=== PATIENT | male | born 1975 | race Caucasian/White ===

== ENCOUNTER → 2016-10-04 | Outpatient (CLI) | payer OTHER ==
[2016-10-04 08:24] LABS: CH 31.4; CHCM 32.8; HCT 47.3 % (39.0-53.0); HDW 2.51; HGB 15.5 gm/dL (13.0-17.5); MCH 31.6 pg (25.0-35.0); MCHC 32.9 g/dL (31.0-37.0); MCV 96.3 fL (80.0-100.0); Mean Platelet Volume 7.8; RBC 4.91 m/uL (4.30-5.90); RDW 13.4 % (11.5-15.5); WBC 7.2 k/uL (3.8-10.6)
[2016-10-04 08:41] LABS: ALT 24 U/L (21-72); AST 21 U/L (17-59); Alkaline Phosphatase 56 U/L (38-126); Anion Gap 10 mmol/L; Blood Urea Nitrogen 12 mg/dL (9-20); Carbon Dioxide 27 mmol/L (22-30); Chloride 106 mmol/L (98-107); Cholesterol 235 mg/dL (<200); Glucose 102 mg/dL (74-99); HDL Cholesterol 38 mg/dL (40-60); Non-African American GFR(MDRD) >60 (>60 ml/min/1.73 sqM); Potassium 5.2 mmol/L (3.5-5.1); Sodium 143 mmol/L (137-145); Total Protein 7.9 g/dL (6.3-8.2); Triglycerides 134 mg/dL (<150)
== END | disposition home or self-care (01) ==
LOC: LABWHC1 07:59
PROVIDERS: ATTEND Internal Medicine
DX: Z00.00 Encounter for general adult medical examination without abnormal findings (principal)
CPT/HCPCS: 36415; 80053; 80061; 84439; 84443; 85027

== ENCOUNTER → 2016-10-08 | Outpatient (CLI) | payer OTHER ==
--- NOTE | 2016-10-08 16:45 | US ---
EXAMINATION TYPE: US scrotum with doppler. Grayscale and color Doppler Duplex imaging performed of sammie negrete scrotum. DATE OF EXAM: 10/08/2016 4:32 PM COMPARISON: NONE CLINICAL HISTORY: N50.812 Left testicular pain. Rectal bleeding, minor left testicle pain EXAM MEASUREMENTS: TESTICLES: Right Testicle: 2.9 x 2.6 x 3.3 cm Left Testicle: 3.7 x 2.5 x 3.0 cm EPIDIDYMIS HEAD: Right Epididymis: 1.3 cm Left Epididymis: 1.1 cm Doppler performed to assess for testicular vascularity; good bilateral color flow and waveforms are s een. Presence of hydroceles: yes, complex fluid collection medial/inferior to left testicle = 2.5 x 2.0 x 3.2cm Presence of varicoceles: no No suspicious focal intratesticular mass is seen bilaterally. Satisfactory blood flow to and venous r eturn from both testicles is identified. There is moderate size nonsimple left scrotal fluid collecti on. Comparison view shows symmetric blood flow to both testicles. IMPRESSION: Moderate nonsimple scrotal fluid collection. No asymmetric diminished or increased blood flow to left testicle is noted.
== END | disposition home or self-care (01) ==
LOC: RADUSMAIN 16:02
PROVIDERS: ATTEND Internal Medicine
DX: N50.89 Other specified disorders of the male genital organs (principal); N50.812 Left testicular pain
CPT/HCPCS: 76870; 93975

== ENCOUNTER → 2017-08-03 | Outpatient (CLI) | payer OTHER ==
--- NOTE | 2017-08-03 17:23 | XR ---
EXAMINATION TYPE: XR Hip Complete RT DATE OF EXAM: 08/03/2017 CLINICAL HISTORY: Right hip pain TECHNIQUE: AP and frogleg views of the right hip are obtained. COMPARISON: None. FINDINGS: There is no acute fracture/dislocation evident in the right hip. The joint space in the r ight hip appears mildly narrowed with acetabular roof sclerosis. The overlying soft tissue appears u nremarkable. IMPRESSION: There is no acute fracture or dislocation in the right hip. Mild right femoral acetabula r arthropathy.
== END | disposition home or self-care (01) ==
LOC: RADXRMAIN 16:59
PROVIDERS: ATTEND Emergency Medicine
DX: M12.9 Arthropathy, unspecified (principal)
CPT/HCPCS: 73502

== ENCOUNTER → 2017-08-11 | Outpatient (CLI) | payer OTHER ==
--- NOTE | 2017-08-11 23:16 | MR ---
EXAMINATION TYPE: MR hip RT wo con DATE OF EXAM: 08/11/2017 COMPARISON: Right hip x-ray August 03, 2017 HISTORY: Sprain of right hip, initial encounter. Pain for 8 days after slip and fall injury on ice pe r patient. Standard multiplanar, multisequence MRI departmental protocol Multiplanar, multisequence images of the pelvis focus on the right hip were acquired. FINDINGS: Bone marrow signal intensity in the pelvis including both hips is maintained. No suspicious T2 signal or edema is seen. No suspicious low T1 signal to suggest avascular necrosis is identified. Femoral head shapes are maintained bilaterally. No suspicious joint effusions are seen. There is no suspicious fluid signal at level of greater or lesser trochanters bilaterally. Muscle bu lk in the bilateral thighs is symmetric and felt within normal limits. No suspicious groin adenopathy is identified. No suspicious groin fat or bowel containing inguinal hernias are seen. The labrum appears grossly intact given limitation of nonarthrogram study. No suspicious bowel dilatation is seen. Low-lying cecum into anterior right pelvis is present. No con cerning pelvic fluid collection is noted. Urinary bladder is unremarkable. Prostate gland is normal i n size. No suspicious pelvic adenopathy is seen. IMPRESSION: No significant finding is seen to account for patient's symptoms.
== END | disposition home or self-care (01) ==
LOC: RADMRIMAIN 06:12
PROVIDERS: ATTEND Emergency Medicine
DX: S73.101A Unspecified sprain of right hip, initial encounter (principal)

== ENCOUNTER 2018-08-29 09:26 | Emergency (ER) | payer OTHER ==
[2018-08-29 09:38] VITALS: RESP 18; TEMP 98.1
[2018-08-29] MEDS ORDERED: KETOROLAC 30 MG/ML 1 ML VIAL IVP STA (09:59)
[2018-08-29 10:16] LABS: Basophils % (A) 0 %; Eosinophils # (A) 0.2 k/uL (0-0.7); Eosinophils % (A) 3 %; HCT 48.4 % (39.0-53.0); Lymphocytes # (A) 2.3 k/uL (1.0-4.8); Lymphocytes % (A) 33 %; MCH 30.1 pg (25.0-35.0); MCHC 33.2 g/dL (31.0-37.0); MCV 90.8 fL (80.0-100.0); Mean Platelet Volume 7.3; Monocytes # (A) 0.4 k/uL (0-1.0); Monocytes % (A) 6 %; Neutrophils # (A) 3.7 k/uL (1.3-7.7); Neutrophils % (A) 54 %; Platelet Count 177 k/uL (150-450); RBC 5.33 m/uL (4.30-5.90); RDW 13.1 % (11.5-15.5); WBC 6.9 k/uL (3.8-10.6)
[2018-08-29 10:24] LABS: ALT 32 U/L (21-72); AST 24 U/L (17-59); Albumin 4.4 g/dL (3.5-5.0); Alkaline Phosphatase 61 U/L (38-126); Anion Gap 9 mmol/L; Blood Urea Nitrogen 14 mg/dL (9-20); Calcium 9.6 mg/dL (8.4-10.2); Carbon Dioxide 26 mmol/L (22-30); Chloride 107 mmol/L (98-107); Glucose 110 mg/dL (74-99); Potassium 4.7 mmol/L (3.5-5.1); Sodium 142 mmol/L (137-145); Total Bilirubin 0.9 mg/dL (0.2-1.3); Total Protein 7.5 g/dL (6.3-8.2)
--- NOTE | 2018-08-29 10:27 | XR ---
EXAMINATION TYPE: XR KUB DATE OF EXAM: 08/29/2018 CLINICAL DATA: 43-year-old male hematuria for 4 days, pain, PHH COMPARISON: None FINDINGS: Lung bases are clear. No evidence for free intraperitoneal air. No dilated small bowel or air-fluid levels. Scattered air and stool seen throughout the colon extendi ng distally into the rectum. Moderate stool burden. No definite suspicious calcifications identified. IMPRESSION: Moderate stool burden. No evidence of bowel obstruction or free intraperitoneal air.
[2018-08-29 10:29] LABS: Appearance,Urine Clear (Clear); Bilirubin,Urine Negative (Negative); Blood,Urine Negative (Negative); Color,Urine Yellow; Glucose,Urine (UA) Negative (Negative); Ketones,Urine Negative (Negative); Leukocyte Esterase,Urine Negative (Negative); Mucus,Urine Rare /hpf; Nitrite,Urine Negative (Negative); Protein,Urine 1+ (Negative); RBC,Urine <1 /hpf (0-5); Specific Gravity,Urine 1.015 (1.001-1.035); Squamous Epithelial Cell,Urine <1 /hpf (0-4); Urobilinogen,Urine <2.0 mg/dL (<2.0); WBC,Urine 1 /hpf (0-5)
--- NOTE | 2018-08-29 11:25 | CT ---
EXAMINATION TYPE: CT abdomen pelvis wo con DATE OF EXAM: 08/29/2018 COMPARISON: Radiograph same day HISTORY: 43-year-old male Right sided flank pian, gross hematuria and painful urination CT DLP: 651.7 mGycm. Automated exposure control for dose reduction was used. TECHNIQUE: Contiguous axial scanning of the abdomen and pelvis without IV contrast. Coronal and sagit marissa reconstructions performed. FINDINGS: Heart normal size without pericardial effusion. Tiny calcification central hepatic dome, possible small calcified granuloma. Noncontrast appearance of the liver, gallbladder, left adrenal gland, kidneys, spleen with anterior s plenule, and pancreas show no gross abnormality. Subtle 8 mm nodularity possible in the right adrenal gland, axial image 45. No dilated small bowel, free fluid, or free air. No mesenteric or retroperitoneal lymphadenopathy. Normal appendix. Scattered moderate stool burden. No pericolonic inflammatory change. Moderate circumferential bladder wall thickening. Prostate gland measures 4.6 cm wide. Punctate centr al prostatic calcifications. No abnormal fluid collection in the pelvis or pelvic lymphadenopathy see n. Bones: Mild degenerative spurring of the hips. No osseous destructive process. IMPRESSION: 1. No nephrolithiasis or hydronephrosis seen. 2. Moderate circumferential bladder wall thickening could represent chronic bladder wall hypertrophy . Correlate for possible cystitis. 3. Mild prostatomegaly at 4.6 cm wide. 4. Possible tiny 8 mm right adrenal adenoma. Consider one-year follow-up to reassess.
--- NOTE | 2018-08-29 11:28 | ED ---
Male Urogenital HPI - General Chief complaint: Urogenital Stated complaint: Painful to urinate Time Seen by Provider: 08/29/18 09:50 Source: patient Mode of arrival: ambulatory Limitations: no limitations - History of Present Illness Initial comments: 43-year-old male past medical history of hypertension presenting today for chief complaint of dysuria and hematuria. Patient states the past few weeks he has had on and off right flank pain he states it comes and goes in intensity. Patient states she did have a few days ago intense dysuria as well as hematuria. Patient states today this morning he began experiencing dysuria again and decided to present for evaluation. Patient has a fever, chills, night sweats. Patient denies concern for sexual transmitted disease. Patient denies chest pain, dyspnea, abdominal pain or testicular pain, patient denies any nausea vomiting headache dizziness numbness tingling back pain. Upon arrival patient appears well there is no signs of acute distress. Patient denies any current flank pain. Patient states when he used the restroom for urine sample that was yellow he denied gross hematuria at this time. Upon arrival patient's initial blood pressure elevated. - Related Data Allergies Allergy/AdvReac Type Severity Reaction Status Date / Time No Known Allergies Allergy Verified 08/29/18 09:34 Review of Systems ROS Statement: Those systems with pertinent positive or pertinent negative responses have been documented in the HPI. ROS Other: All systems not noted in ROS Statement are negative. Past Medical History Additional Past Medical History / Comment(s): chronic back pain History of Any Multi-Drug Resistant Organisms: None Reported Past Surgical History: No Surgical Hx Reported Past Psychological History: No Psychological Hx Reported Smoking Status: Current every day smoker Past Alcohol Use History: Occasional Past Drug Use History: None Reported General Exam - General Exam Comments Initial Comments: General: The patient is awake and alert, in no distress, and does not appear acutely ill. Eye: Pupils are equal, round and reactive to light, extra-ocular movements are intact. No nystagmus. There is normal conjunctiva bilaterally. No signs of icterus. Ears, nose, mouth and throat: There are moist mucous membranes and no oral lesions. Neck: The neck is supple, there is no tenderness or JVD. Cardiovascular: There is a regular rate and rhythm. No murmur, rub or gallop is appreciated. Respiratory: Lungs are clear to auscultation, respirations are non-labored, breath sounds are equal. No wheezes, stridor, rales, or rhonchi. Gastrointestinal: Soft, non-distended, non-tender abdomen without masses or organomegaly noted. There is no rebound or guarding present. No CVA tenderness. Bowel sounds are unremarkable. Musculoskeletal: Normal ROM, no tenderness. Strength 5/5. Sensation intact. Radial pulses equal bilaterally 2+. Neurological: A&O x 3. CN II-XII intact, There are no obvious motor or sensory deficits. Coordination appears grossly intact. Speech is normal. Skin: Skin is warm and dry and no rashes or lesions are noted. Psychiatric: Cooperative, appropriate mood & affect, normal judgment. Limitations: no limitations Course Vital Signs 08/29/18 08/29/18 09:35 11:42 Temperature 98.1 F 98.1 F Pulse Rate 69 72 Respiratory 18 18 Rate Blood Pressure 149/97 138/89 O2 Sat by Pulse 98 99 Oximetry Medical Decision Making - Medical Decision Making Well-appearing 43-year-old male. Patient did have history of flank pain a week or two prior. Pt complained of hematuria and dysuria. Pt KUB no calcifications. CT no acute abnormalities, and the finding of adrenal adenoma was discussed with patient, I recommended follow-up with primary care provider. This I feel patient had passed kidney stone prior to presentation. Patient left or studies within normal limits. Urinalysis revealed no abnormalities no overt signs of infection. Patient is in no discomfort. Patient has benign abdominal exam. Patient is stable for discharge with urology follow-up for hematuria. Patient is a smoker. Patient denies questions at this time agreeable plan and discharged. I'll return parameters were discussed at length the patient who verbalized understanding. Patient discharged appearing well with improvement of blood pressure. I did discuss the case with attending provider Dr. Vargas prior to patient's discharge. - Lab Data Result diagrams: 08/29/18 10:08 08/29/18 10:07 Lab Results 08/29/18 08/29/18 08/29/18 Range/Units 09:43 10:07 10:08 WBC 6.9 (3.8-10.6) k/uL RBC 5.33 (4.30-5.90) m/uL Hgb 16.0 (13.0-17.5) gm/dL Hct 48.4 (39.0-53.0) % MCV 90.8 (80.0-100.0) fL MCH 30.1 (25.0-35.0) pg MCHC 33.2 (31.0-37.0) g/dL RDW 13.1 (11.5-15.5) % Plt Count 177 (150-450) k/uL Neutrophils % 54 % Lymphocytes % 33 % Monocytes % 6 % Eosinophils % 3 % Basophils % 0 % Neutrophils # 3.7 (1.3-7.7) k/uL Lymphocytes # 2.3 (1.0-4.8) k/uL Monocytes # 0.4 (0-1.0) k/uL Eosinophils # 0.2 (0-0.7) k/uL Basophils # 0.0 (0-0.2) k/uL Sodium 142 (137-145) mmol/L Potassium 4.7 (3.5-5.1) mmol/L Chloride 107 (98-107) mmol/L Carbon Dioxide 26 (22-30) mmol/L Anion Gap 9 mmol/L BUN 14 (9-20) mg/dL Creatinine 0.87 (0.66-1.25) mg/dL Est GFR (CKD-EPI)AfAm >90 (>60 ml/min/1.73 sqM) Est GFR (CKD-EPI)NonAf >90 (>60 ml/min/1.73 sqM) Glucose 110 H (74-99) mg/dL Calcium 9.6 (8.4-10.2) mg/dL Total Bilirubin 0.9 (0.2-1.3) mg/dL AST 24 (17-59) U/L ALT 32 (21-72) U/L Alkaline Phosphatase 61 (38-126) U/L Total Protein 7.5 (6.3-8.2) g/dL Albumin 4.4 (3.5-5.0) g/dL Urine Color Yellow Urine Appearance Clear (Clear) Urine pH 6.0 (5.0-8.0) Ur Specific [place] 1.015 (1.001-1.035) Urine Protein 1+ H (Negative) Urine Glucose (UA) Negative (Negative) Urine Ketones Negative (Negative) Urine Blood Negative (Negative) Urine Nitrite Negative (Negative) Urine Bilirubin Negative (Negative) Urine Urobilinogen <2.0 (<2.0) mg/dL Ur Leukocyte Esterase Negative (Negative) Urine RBC <1 (0-5) /hpf Urine WBC 1 (0-5) /hpf Ur Squamous Epith Cells <1 (0-4) /hpf Urine Mucus Rare H (None) /hpf Disposition Clinical Impression: Dysuria, Hematuria Disposition: HOME SELF-CARE Condition: Good Instructions (If sedation given, give patient instructions): Hematuria (ED) Additional Instructions: Please use medication as discussed. Please follow-up with family doctor in the next 2 days, including scheduling follow-up for adrenal adenoma. Please follow- up with urology in next week. Please return to emergency room if the symptoms increase or worsen or for any other concerns. Is patient prescribed a controlled substance at d/c from ED?: No Referrals: Adriana Rodriguez MD [Primary Care Provider] - 1-2 days David Panchal MD [STAFF PHYSICIAN] - 1-2 days Time of Disposition: 11:27
[2018-08-29 11:43] VITALS: BP 138/89; PULSE 72
== END 2018-08-29 11:43 | disposition home or self-care (01) ==
LOC: EC 09:26
DX: R30.0 Dysuria (principal); R31.9 Hematuria, unspecified; R50.9 Fever, unspecified; R61 Generalized hyperhidrosis; I10 Essential (primary) hypertension; F17.200 Nicotine dependence, unspecified, uncomplicated
CPT/HCPCS: 36415; 80053; 85025; 81001; 74018; 74176; 99284; 96374; J1885

== ENCOUNTER 2018-12-11 14:38 | Emergency (ER) | payer OTHER ==
[2018-12-11 14:47] VITALS: RESP 18
[2018-12-11] MEDS ORDERED: PANTOPRAZOLE 40 MG/10 ML VIAL IVP STA (15:21)
[2018-12-11] MEDS ORDERED: ONDANSETRON 4 MG/2 ML VIAL IVP STA (15:21)
[2018-12-11] MEDS ORDERED: SODIUM CHLORIDE 0.9% 500 ML 500 ML IV STA (15:21)
[2018-12-11] MEDS ORDERED: AMOXICILLIN 500MG STARTER PACK 3 CAP BTL PO STA (15:22)
--- NOTE | 2018-12-11 15:33 | ED ---
General Adult HPI - General Chief complaint: Recheck/Abnormal Lab/Rx Stated complaint: Side pain Time Seen by Provider: 12/11/18 15:00 Source: patient, RN notes reviewed, old records reviewed Mode of arrival: ambulatory Limitations: no limitations - History of Present Illness Initial comments: Patient is a 43-year-old male presents emergency department today with complaints of left upper dental pain and swelling. He states is been having the symptoms for the past 3 days. He also presents complaining of some intermittent left-sided abdominal and flank pain worse after eating. He reports having the symptoms for the past month. states that he has had no associate chest pain or shortness of breath. He reports normal urination or bowel habits. - Related Data Home Medications Medication Instructions Recorded Confirmed Acetaminophen [Tylenol Extra 1,000 mg PO TID PRN 12/11/18 12/11/18 Strength] Previous Rx's Medication Instructions Recorded Amoxicillin 500 mg PO Q8H #21 capsule 12/11/18 Famotidine [Pepcid] 20 mg PO BID #20 tablet 12/11/18 Sucralfate [Carafate] 1 gm PO ACHS #20 tablet 12/11/18 Allergies Allergy/AdvReac Type Severity Reaction Status Date / Time No Known Allergies Allergy Verified 12/11/18 15:17 Review of Systems ROS Statement: Those systems with pertinent positive or pertinent negative responses have been documented in the HPI. ROS Other: All systems not noted in ROS Statement are negative. Past Medical History Additional Past Medical History / Comment(s): chronic back pain History of Any Multi-Drug Resistant Organisms: None Reported Past Surgical History: No Surgical Hx Reported Past Psychological History: No Psychological Hx Reported Smoking Status: Current every day smoker Past Alcohol Use History: Occasional Past Drug Use History: None Reported General Exam - General Exam Comments Initial Comments: This is a 43-year-old male. Alert and oriented 3. No distress. Limitations: no limitations General appearance: alert, in no apparent distress Head exam: Present: atraumatic, normocephalic, normal inspection Eye exam: Present: normal appearance, PERRL, EOMI. Absent: scleral icterus, conjunctival injection, periorbital swelling ENT exam: Present: normal exam, mucous membranes moist Neck exam: Present: normal inspection. Absent: tenderness, meningismus, lymphadenopathy Respiratory exam: Present: normal lung sounds bilaterally. Absent: respiratory distress, wheezes, rales, rhonchi, stridor Cardiovascular Exam: Present: regular rate GI/Abdominal exam: Present: soft, normal bowel sounds. Absent: distended, tenderness, guarding, rebound, rigid Extremities exam: Present: normal inspection, full ROM, normal capillary refill. Absent: tenderness, pedal edema, joint swelling, calf tenderness Back exam: Present: normal inspection Neurological exam: Present: alert, oriented X3, CN II-XII intact Course Vital Signs 12/11/18 12/11/18 14:45 15:57 Temperature 98.1 F Pulse Rate 76 67 Respiratory 18 18 Rate Blood Pressure 159/95 162/95 O2 Sat by Pulse 99 96 Oximetry Medical Decision Making - Lab Data Result diagrams: 12/11/18 15:48 12/11/18 15:48 Lab Results 12/11/18 12/11/18 12/11/18 Range/Units 15:48 15:48 16:23 WBC 13.3 H (3.8-10.6) k/uL RBC 5.60 (4.30-5.90) m/uL Hgb 16.9 (13.0-17.5) gm/dL Hct 50.3 (39.0-53.0) % MCV 89.8 (80.0-100.0) fL MCH 30.1 (25.0-35.0) pg MCHC 33.5 (31.0-37.0) g/dL RDW 13.0 (11.5-15.5) % Plt Count 215 (150-450) k/uL Neutrophils % 62 % Lymphocytes % 27 % Monocytes % 5 % Eosinophils % 3 % Basophils % 0 % Neutrophils # 8.3 H (1.3-7.7) k/uL Lymphocytes # 3.6 (1.0-4.8) k/uL Monocytes # 0.7 (0-1.0) k/uL Eosinophils # 0.3 (0-0.7) k/uL Basophils # 0.1 (0-0.2) k/uL Sodium 140 (137-145) mmol/L Potassium 4.4 (3.5-5.1) mmol/L Chloride 106 (98-107) mmol/L Carbon Dioxide 24 (22-30) mmol/L Anion Gap 10 mmol/L BUN 14 (9-20) mg/dL Creatinine 0.87 (0.66-1.25) mg/dL Est GFR (CKD-EPI)AfAm >90 (>60 ml/min/1.73 sqM) Est GFR (CKD-EPI)NonAf >90 (>60 ml/min/1.73 sqM) Glucose 88 (74-99) mg/dL Calcium 9.8 (8.4-10.2) mg/dL Total Bilirubin 0.5 (0.2-1.3) mg/dL AST 26 (17-59) U/L ALT 25 (21-72) U/L Alkaline Phosphatase 67 (38-126) U/L Total Protein 8.1 (6.3-8.2) g/dL Albumin 4.9 (3.5-5.0) g/dL Amylase 84 (30-110) U/L Lipase 56 (23-300) U/L Urine Color Yellow Urine Appearance Clear (Clear) Urine pH 5.5 (5.0-8.0) Ur Specific [place] 1.012 (1.001-1.035) Urine Protein 1+ H (Negative) Urine Glucose (UA) Negative (Negative) Urine Ketones Negative (Negative) Urine Blood Negative (Negative) Urine Nitrite Negative (Negative) Urine Bilirubin Negative (Negative) Urine Urobilinogen <2.0 (<2.0) mg/dL Ur Leukocyte Esterase Negative (Negative) Urine WBC 2 (0-5) /hpf Urine Bacteria Rare H (None) /hpf Urine Mucus Rare H (None) /hpf Disposition Clinical Impression: Gastritis, Dental abscess Disposition: HOME SELF-CARE Condition: Good Instructions (If sedation given, give patient instructions): Gastritis (ED), Toothache (ED) Additional Instructions: [facility] [address] [place] [address] [phone] (existing clients only) For new clients: [phone] 1st consult: $50 (includes Xrays) Usually 30% less then private dentist for visits after. [employer] Have to pay $50 for Xrays anmd rest is covered. [phone] Patient should also take the antacid medication as prescribed. Avoid foods such as coffee and soda and spicy foods. Prescriptions: Amoxicillin 500 mg PO Q8H #21 capsule Sucralfate [Carafate] 1 gm PO ACHS #20 tablet Famotidine [Pepcid] 20 mg PO BID #20 tablet Referrals: Adriana Rodriguez MD [Primary Care Provider] - 1-2 days Time of Disposition: 17:02
[2018-12-11 15:58] VITALS: PULSE 67
[2018-12-11 15:58] LABS: Basophils # (A) 0.1 k/uL (0-0.2); Basophils % (A) 0 %; Eosinophils # (A) 0.3 k/uL (0-0.7); Eosinophils % (A) 3 %; HCT 50.3 % (39.0-53.0); HGB 16.9 gm/dL (13.0-17.5); Lymphocytes # (A) 3.6 k/uL (1.0-4.8); Lymphocytes % (A) 27 %; MCH 30.1 pg (25.0-35.0); MCHC 33.5 g/dL (31.0-37.0); MCV 89.8 fL (80.0-100.0); Mean Platelet Volume 7.5; Monocytes # (A) 0.7 k/uL (0-1.0); Monocytes % (A) 5 %; Neutrophils # (A) 8.3 k/uL (1.3-7.7); Neutrophils % (A) 62 %; Platelet Count 215 k/uL (150-450); WBC 13.3 k/uL (3.8-10.6)
--- NOTE | 2018-12-11 16:04 | XR ---
EXAMINATION TYPE: XR KUB DATE OF EXAM: 12/11/2018 CLINICAL DATA: 43-year-old male with abdominal pain, H COMPARISON: 08/29/2018 FINDINGS: Lung bases are clear. No evidence for free intraperitoneal air. No dilated small bowel or differential air-fluid levels. Scattered air and stool seen throughout the colon extending distally into the rectum. Mild to moderate stool burden. No suspicious calcifications identified. IMPRESSION: 1. Mild to moderate stool burden. 2.No evidence of bowel obstruction or free intraperitoneal air.
[2018-12-11 16:07] LABS: ALT 25 U/L (21-72); AST 26 U/L (17-59); African American GFR (CKD) >90 (>60 ml/min/1.73 sqM); Albumin 4.9 g/dL (3.5-5.0); Alkaline Phosphatase 67 U/L (38-126); Amylase 84 U/L (30-110); Anion Gap 10 mmol/L; Blood Urea Nitrogen 14 mg/dL (9-20); Calcium 9.8 mg/dL (8.4-10.2); Carbon Dioxide 24 mmol/L (22-30); Chloride 106 mmol/L (98-107); Glucose 88 mg/dL (74-99); Lipase 56 U/L (23-300); Potassium 4.4 mmol/L (3.5-5.1); Sodium 140 mmol/L (137-145); Total Bilirubin 0.5 mg/dL (0.2-1.3); Total Protein 8.1 g/dL (6.3-8.2)
[2018-12-11 16:32] LABS: Appearance,Urine Clear (Clear); Bacteria,Urine Rare /hpf; Bilirubin,Urine Negative (Negative); Blood,Urine Negative (Negative); Color,Urine Yellow; Glucose,Urine (UA) Negative (Negative); Ketones,Urine Negative (Negative); Leukocyte Esterase,Urine Negative (Negative); Mucus,Urine Rare /hpf; Nitrite,Urine Negative (Negative); PH, Urine 5.5 (5.0-8.0); Protein,Urine 1+ (Negative); Specific Gravity,Urine 1.012 (1.001-1.035); Urobilinogen,Urine <2.0 mg/dL (<2.0); WBC,Urine 2 /hpf (0-5)
[2018-12-11 17:41] VITALS: BP 133/92; TEMP 98.2
== END 2018-12-11 17:41 | disposition home or self-care (01) ==
LOC: EC 14:38
DX: K29.70 Gastritis, unspecified, without bleeding (principal); K04.7 Periapical abscess without sinus; F17.200 Nicotine dependence, unspecified, uncomplicated
CPT/HCPCS: 36415; 80053; 82150; 83690; 85025; 81001; 74018; 99284; 96374; 96375; 96361 ×2; J2405; C9113

== ENCOUNTER 2019-04-03 16:40 | Emergency (ER) | payer OTHER ==
[2019-04-03 16:52] VITALS: BP 130/82; PULSE 88; RESP 16; TEMP 98.2
[2019-04-03] MEDS ORDERED: ACET/COD 300 MG/30 MG STARTER PACK 6 TAB BTL PO STA (16:57)
[2019-04-03] MEDS ORDERED: PENICILLIN VK 500MG STARTER 4 TAB BTL PO STA (16:57)
--- NOTE | 2019-04-03 16:57 | ED ---
ENT HPI - General Chief complaint: Dental/Oral Stated complaint: Dental Time Seen by Provider: 04/03/19 16:55 Source: patient Mode of arrival: ambulatory Limitations: no limitations - History of Present Illness Initial comments: 44-year-old male presenting for right upper dental pain. Patient states that tooth #7 has been cracked for quite some time that has been causing pain he states is been increasing for the past day. Patient also states that he is out of his medications for his chronic back pain denies any changes denies loss of bowel bladder control urinary retention loss sensation or radiation down the legs. Patient has a muscle weakness or lower extremities. 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 Patient denies fever fluid symptoms swelling below the angle of the jaw, neck or below the tongue. Patient has no other complaints appears well signs acute distress ambulatory. Denies IV drug use denies history of cancer. Denies any recent falls trauma to the back. Remainign ROS (-). Patient appears well on arrival. - Related Data Home Medications Medication Instructions Recorded Confirmed Acetaminophen [Tylenol Extra 1,000 mg PO TID PRN 12/11/18 12/11/18 Strength] Previous Rx's Medication Instructions Recorded Amoxicillin 500 mg PO Q8H #21 capsule 12/11/18 Famotidine [Pepcid] 20 mg PO BID #20 tablet 12/11/18 Sucralfate [Carafate] 1 gm PO ACHS #20 tablet 12/11/18 Ibuprofen 800 mg PO Q8H PRN 7 Days #21 tablet 04/03/19 Penicillin V Potassium [Pen Vee K] 500 mg PO QID 7 Days #28 tablet 04/03/19 Allergies Allergy/AdvReac Type Severity Reaction Status Date / Time No Known Allergies Allergy Verified 04/03/19 16:52 Review of Systems ROS Statement: Those systems with pertinent positive or pertinent negative responses have been documented in the HPI. ROS Other: All systems not noted in ROS Statement are negative. Past Medical History Additional Past Medical History / Comment(s): chronic back pain History of Any Multi-Drug Resistant Organisms: None Reported Past Surgical History: No Surgical Hx Reported Past Psychological History: No Psychological Hx Reported Smoking Status: Current every day smoker Past Alcohol Use History: Occasional Past Drug Use History: None Reported General Exam - General Exam Comments Initial Comments: General: The patient is awake and alert, in no distress, and does not appear acutely ill. Eye: +3 mm pupils are equal, round and reactive to light, extra-ocular movements are intact. No nystagmus. There is normal conjunctiva bilaterally. No signs of icterus. Ears, nose, mouth and throat: There are moist mucous membranes and no oral lesions. Multiple missing teeth, tooth #8 root exposed, no palpable abscess--pain to percussion. The swelling below tongue no swelling below the angle of the mandible. No tripod no drooling. Cardiovascular: There is a regular rate and rhythm. No murmur, rub or gallop is appreciated. Respiratory: Lungs are clear to auscultation, respirations are non-labored, b reath sounds are equal. No wheezes, stridor, rales, or rhonchi. Gastrointestinal: Soft, non-distended, non-tender abdomen without masses or organomegaly noted. There is no rebound or guarding present. Musculoskeletal: No midline tenderness to palpation of the cervical thoracic or lumbar spine. No paravertebral tenderness. Normal ROM, no tenderness. Strength 5/5 of the LE b/l. Sensation intact of the LE b/l. Radial pulses equal bilaterally 2+. Neurological: A&O x 3. CN II-XII intact grossly, There are no obvious motor or sensory deficits. Coordination appears grossly intact. Speech is normal. Skin: Skin is warm and dry and no rashes or lesions are noted. Psychiatric: Cooperative, appropriate mood & affect, normal judgment. Limitations: no limitations Course Vital Signs 04/03/19 16:51 Temperature 98.2 F Pulse Rate 88 Respiratory 16 Rate Blood Pressure 130/82 O2 Sat by Pulse 99 Oximetry Medical Decision Making - Medical Decision Making Very well-appearing 44yo presented for dental pain. No evidence of fluctuant abscess. Cannot rule out periapical abscess. Patient's overall poor dentition. Patient is chronic back pain out of ibuprofen 800. Patient is provided outpatient prescription. Patient denies any new back pain. Patient states his main concern was the tooth patient prescribed Pen-Vee K patient given Tylenol No. 3 in the emergency department for pain patient discharged appearing well. Disposition Clinical Impression: Pain, dental Disposition: HOME SELF-CARE Condition: Good Instructions (If sedation given, give patient instructions): Dental Abscess (ED) Additional Instructions: Please use medication as discussed. Please follow-up with dentist for tooth extraction in next week. Please return to emergency room if the symptoms increase or worsen or for any other concerns, patient swelling neck swelling swelling below the tongue difficulty breathing or swallowing fevers flulike symptoms. Prescriptions: Ibuprofen 800 mg PO Q8H PRN 7 Days #21 tablet PRN Reason: Pain Penicillin V Potassium [Pen Vee K] 500 mg PO QID 7 Days #28 tablet Is patient prescribed a controlled substance at d/c from ED?: No Referrals: Adriana Rodriguez MD [Primary Care Provider] - 1-2 days Time of Disposition: 16:56
== END 2019-04-03 17:11 | disposition home or self-care (01) ==
LOC: EC 16:40
DX: K08.89 Other specified disorders of teeth and supporting structures (principal); K00.7 Teething syndrome; M79.89 Other specified soft tissue disorders; K14.8 Other diseases of tongue; G89.29 Other chronic pain; M54.9 Dorsalgia, unspecified; F17.200 Nicotine dependence, unspecified, uncomplicated
CPT/HCPCS: 99282

== ENCOUNTER → 2019-07-02 | Outpatient (CLI) | payer OTHER ==
[2019-07-02 09:10] LABS: HCT 47.3 % (39.0-53.0); HGB 15.7 gm/dL (13.0-17.5); MCH 30.9 pg (25.0-35.0); MCHC 33.1 g/dL (31.0-37.0); MCV 93.4 fL (80.0-100.0); Mean Platelet Volume 8.3; Platelet Count 181 k/uL (150-450); RBC 5.07 m/uL (4.30-5.90); RDW 12.5 % (11.5-15.5); WBC 7.9 k/uL (3.8-10.6)
[2019-07-02 16:45] LABS: African American GFR (CKD) 104.9 (60.0-200.0); Albumin 4.6 g/dL (3.80-4.90); Albumin/Globulin Ratio 2.19 (1.60-3.17); Anion Gap 5.1 mmol/L (4.00-12.00); Calcium 9.5 mg/dL (8.7-10.3); Carbon Dioxide 26.9 mmol/L (21.6-31.8); Chol/HDL Ratio 6.29; Globulin 2.1 g/dL (1.6-3.3); LDL Cholesterol,Calculated 128.2 mg/dL (0.0-131.0); Non-African American GFR(CKD) 90.5 (60.0-200.0); Potassium 5.1 mmol/L (3.5-5.5); Total Bilirubin 0.5 mg/dL (0.3-1.2); Total Protein 6.7 g/dL (6.2-8.2); VLDL Calculation 51.8 mg/dL (5.00-40.00)
== END | disposition home or self-care (01) ==
LOC: LABWHC1 08:39
PROVIDERS: ATTEND Internal Medicine
DX: I10 Essential (primary) hypertension (principal); E78.00 Pure hypercholesterolemia, unspecified
CPT/HCPCS: 36415; 80053; 80061; 85027

== ENCOUNTER 2019-07-30 18:23 | Emergency (ER) | payer OTHER ==
[2019-07-30] MEDS ORDERED: HYDROcodone/APAP 10-325MG 1 EACH TAB PO ONE (18:45)
[2019-07-30] MEDS ORDERED: KETOROLAC 60 MG/2 ML VIAL IM STA (18:45)
--- NOTE | 2019-07-30 19:07 | ED ---
Back Pain HPI - General Chief Complaint: Back Pain/Injury Stated Complaint: back pain Time Seen by Provider: 07/30/19 18:35 Source: patient Limitations: no limitations - History of Present Illness Initial Comments: 44yo male with history of chronic low back pain and previous fusion presenting to the ER today for cc of low back pain. Patient states today he was working under his truck changing an oil pain when he began developing pack pain a few hours later. Denies trauma or falls. Denies fevers, IVDU, chronic steroid use. Patient denies loss of bowel bladder control or urinary retention. Denies abdominal pain, chest pain or SOB. patient denies weakness or loss of strength of the lower extremities. Patient states the pain is in the lower mid to lower back, radiates towards hips, Michelle redness, rashes. States pain increases with movement or rotation, positional. Patient states best at rest. Patient denies any other area of pain or complaints. On arrival patient appears well there is no signs of acute distress. - Related Data Home Medications Medication Instructions Recorded Confirmed Acetaminophen [Tylenol Extra 1,000 mg PO TID PRN 12/11/18 12/11/18 Strength] Previous Rx's Medication Instructions Recorded Amoxicillin 500 mg PO Q8H #21 capsule 12/11/18 Famotidine [Pepcid] 20 mg PO BID #20 tablet 12/11/18 Sucralfate [Carafate] 1 gm PO ACHS #20 tablet 12/11/18 Ibuprofen 800 mg PO Q8H PRN 7 Days #21 tablet 04/03/19 Penicillin V Potassium [Pen Vee K] 500 mg PO QID 7 Days #28 tablet 04/03/19 Ibuprofen 600 mg PO Q8H PRN 7 Days #21 tablet 07/30/19 Allergies Allergy/AdvReac Type Severity Reaction Status Date / Time No Known Allergies Allergy Verified 07/30/19 18:33 Review of Systems ROS Statement: Those systems with pertinent positive or pertinent negative responses have been documented in the HPI. ROS Other: All systems not noted in ROS Statement are negative. Past Medical History Additional Past Medical History / Comment(s): chronic back pain History of Any Multi-Drug Resistant Organisms: None Reported Past Surgical History: No Surgical Hx Reported Additional Past Surgical History / Comment(s): injections in back for pain Past Psychological History: No Psychological Hx Reported Smoking Status: Current every day smoker Past Alcohol Use History: Occasional Past Drug Use History: None Reported General Exam Limitations: no limitations General appearance: alert, in no apparent distress Head exam: Present: atraumatic Eye exam: Present: normal appearance Neck exam: Present: normal inspection, full ROM. Absent: tenderness GI/Abdominal exam: Present: soft. Absent: distended, tenderness, pulsatile mass Right Hip exam: Present: normal inspection, full ROM. Absent: tenderness Lower Leg exam: Present: normal inspection, full ROM Foot/Toe exam: Present: normal inspection, full ROM Neurovascular tendon exam: Absent: no vascular compromise, pulse deficit, motor deficit, sensory deficit, pallor, foot drop Gait: observed and normal Back exam: Present: normal inspection, full ROM, tenderness (of the lower thoracic upper lumbar midline but mostly paravertebral), muscle spasm, paraspinal tenderness, vertebral tenderness (mild) Neurological exam: Present: alert, oriented X3, CN II-XII intact (grossly) Psychiatric exam: Present: normal affect, normal mood Skin exam: Present: warm, dry, intact, normal color. Absent: rash Course Vital Signs 07/30/19 07/30/19 18:30 19:45 Temperature 98.0 F 98.7 F Pulse Rate 89 77 Respiratory 18 20 Rate Blood Pressure 152/98 118/85 O2 Sat by Pulse 99 95 Oximetry Medical Decision Making - Medical Decision Making 44 year old male presenting for acute on chronic back pain after lying under truck today doing repairs. Patient states no pain prior. No direct trauma. No skin changes. No history concerning for caudaequina. Patient has full strength of LE, sensation and able to ambulate without difficulty. Patient has mostly paraspinal tenderness mild midlines. Patient will be treated symptomatically with instruction to f/u with PCP and Dr. Garcia. I recommended resting back, apply heat/ice for comfort and taking medications as prescribed wtih strict return parameters patient verbalized understanding and was discharged appearing well after discussing case with Dr. Willis. Disposition Clinical Impression: Back pain Disposition: HOME SELF-CARE Condition: Good Instructions (If sedation given, give patient instructions): Acute Low Back Pain (ED) Additional Instructions: Please use medications as discussed. Please follow-up with your primary doctor as well as Dr. Garcia. Please return for new, worsening or persistent symptoms. Please return for symptoms discussed such as loss of bowel or bladder control, urine retention, weakness or loss of sensation of lower extremities. Prescriptions: Ibuprofen 600 mg PO Q8H PRN 7 Days #21 tablet PRN Reason: Pain Is patient prescribed a controlled substance at d/c from ED?: No Referrals: Adriana Rodriguez MD [Primary Care Provider] - 1-2 days Miguel Garcia DO [Doctor of Osteopathic Medicine] - 1-2 days Time of Disposition: 19:32
[2019-07-30] MEDS ORDERED: CYCLOBENZAPRINE 10MG STARTER 3 TAB BTL PO STA (19:34)
[2019-07-30] MEDS ORDERED: ACET/COD 300 MG/30 MG STARTER PACK 6 TAB BTL PO STA (19:34)
[2019-07-30 19:49] VITALS: BP 118/85; PULSE 77; RESP 20; TEMP 98.7
== END 2019-07-30 19:45 | disposition home or self-care (01) ==
LOC: EC 18:23
DX: M54.5 Low back pain (principal); F17.200 Nicotine dependence, unspecified, uncomplicated; Z98.1 Arthrodesis status
CPT/HCPCS: 99283; 96372; J1885

== ENCOUNTER 2020-09-03 12:51 | Emergency (ER) | payer OTHER ==
[2020-09-03 13:06] VITALS: BP 131/81; PULSE 74; RESP 18; TEMP 98.3
[2020-09-03] MEDS ORDERED: PROPARACAINE 0.5% OPHTH DROPS 15 ML BTL BOTH EYES STA (13:08)
[2020-09-03] MEDS ORDERED: FLUORESCEIN STRIPS 1 MG STRIP LEFT EYE ONE (13:16)
--- NOTE | 2020-09-03 13:32 | ED ---
General Adult HPI - General Chief complaint: Eye Problems Stated complaint: Left Eye Issues Time Seen by Provider: 09/03/20 13:08 Source: patient, family Mode of arrival: ambulatory Limitations: no limitations - History of Present Illness Initial comments: Dictation was produced using [employer] dictation software. please excuse any gramma tical, word or spelling errors. This patient was cared for during a federal and state declared state of emergency secondary to Covid 19 Chief Complaint: 45-year-old male presents with eye injury History of Present Illness: A 45-year-old male he has no significant past medical history. Approximately 12:30 PM today trying to lift his equipment from out of his vehicle when he swiped his left his left eye with an air compressor wand. Patient's tetanus is up-to-date 2 years ago. Patient complains of some blurry vision and left eye watering. He did note some bleeding. He does not wear eye contacts. The ROS documented in this emergency department record has been reviewed and confirmed by me. Those systems with pertinent positive or negative responses have been documented in the HPI. All other systems are other negative and/or noncontributory. PHYSICAL EXAM: General Impression: Alert and oriented x3, not in acute distress HEENT: Normocephalic atraumatic, extra-ocular movements intact, pupils equal and reactive to light bilaterally, mucous membranes moist. Ocular: Chemosis of the left eye with mild injection and tearing, no clinical deformity no hyphema Cardiovascular: Heart regular rate and rhythm Chest: Able to complete full sentences, no retractions, no tachypnea Abdomen: abdomen soft, non-tender, non-distended, no organomegaly Musculoskeletal: Pulses present and equal in all extremities, no peripheral edema Motor: no focal deficits noted Neurological: CN II-XII grossly intact, no focal motor or sensory deficits noted Skin: Intact with no visualized rashes Psych: Normal affect and mood ED course: 45-year-old male presents with left eye injury. He has no signs of globe rupture. As upon arrival are within acceptable limits. Intraocular pressure is slightly elevated to the left eye. Right eye IOP was 20, left eye IOP was 27. Fluorescein eye testing shows large abrasion of the corneas just left and right of the pupil. Patient has no Susan sign. No other findings to suggest globe rupture. Patient reports increased relief of eye symptoms after proparacaine. Clinical presentation consistent with severe corneal abrasion. Tetanus is up-to-date. EKG interpretation: Ventricular rate [default value]. No TN prolongation, no QTC prolongation, no ST or T-wave changes noted. EKG compared to [default value] showing no changes. Overall, this EKG is unremarkable - Related Data Home Medications Medication Instructions Recorded Confirmed Acetaminophen [Tylenol Extra 1,000 mg PO TID PRN 12/11/18 12/11/18 Strength] Previous Rx's Medication Instructions Recorded Amoxicillin 500 mg PO Q8H #21 capsule 12/11/18 Famotidine [Pepcid] 20 mg PO BID #20 tablet 12/11/18 Sucralfate [Carafate] 1 gm PO ACHS #20 tablet 12/11/18 Ibuprofen 800 mg PO Q8H PRN 7 Days #21 tablet 04/03/19 Penicillin V Potassium [Pen Vee K] 500 mg PO QID 7 Days #28 tablet 04/03/19 Ibuprofen 600 mg PO Q8H PRN 7 Days #21 tablet 07/30/19 Erythromycin Ophth Oint (1 gm) 1 applic LEFT EYE HS 5 Days #1 tube 09/03/20 [Ilotycin Ophth Oint (1 gm)] Ofloxacin 0.3% Ophth Soln [Ocuflox 1 drops LEFT EYE QID 5 Days #1 09/03/20 Ophth Soln] bottle Allergies Allergy/AdvReac Type Severity Reaction Status Date / Time No Known Allergies Allergy Verified 09/03/20 13:06 Review of Systems ROS Statement: Those systems with pertinent positive or pertinent negative responses have been documented in the HPI. ROS Other: All systems not noted in ROS Statement are negative. Past Medical History Additional Past Medical History / Comment(s): chronic back pain History of Any Multi-Drug Resistant Organisms: None Reported Past Surgical History: No Surgical Hx Reported Additional Past Surgical History / Comment(s): injections in back for pain Past Psychological History: No Psychological Hx Reported Smoking Status: Current every day smoker Past Alcohol Use History: Occasional Past Drug Use History: None Reported General Exam Limitations: no limitations Course Vital Signs 09/03/20 13:03 Temperature 98.3 F Pulse Rate 74 Respiratory 18 Rate Blood Pressure 131/81 O2 Sat by Pulse 96 Oximetry Disposition Clinical Impression: Corneal abrasion, left Disposition: HOME SELF-CARE Condition: Fair Instructions (If sedation given, give patient instructions): Corneal Abrasion (ED) Additional Instructions: Apply ointment at night before bed. Otherwise use eyedrops 4 times a day. It is important you follow-up with process consultant as soon as possible to prevent any permanent vision loss. Prescriptions: Erythromycin Ophth Oint (1 gm) [Ilotycin Ophth Oint (1 gm)] 1 applic LEFT EYE HS 5 Days #1 tube Ofloxacin 0.3% Ophth Soln [Ocuflox Ophth Soln] 1 drops LEFT EYE QID 5 Days #1 b ottle Is patient prescribed a controlled substance at d/c from ED?: No Referrals: Angel Alcantara MD [STAFF PHYSICIAN] - 1-2 days Time of Disposition: 13:31
== END 2020-09-03 13:48 | disposition home or self-care (01) ==
LOC: EC 12:51
DX: S05.02XA Injury of conjunctiva and corneal abrasion without foreign body, left eye, initial encounter (principal); F17.200 Nicotine dependence, unspecified, uncomplicated; W24.0XXA Contact with lifting devices, not elsewhere classified, initial encounter; Y93.89 Activity, other specified
CPT/HCPCS: 99283

== ENCOUNTER → 2022-06-16 | Outpatient (CLI) | payer OTHER ==
--- NOTE | 2022-06-16 09:50 | XR ---
EXAMINATION TYPE: XR lumbosacral spine min 4V DATE OF EXAM: 06/16/2022 COMPARISON: None HISTORY: Low back pain TECHNIQUE: 5V lumbar spine FINDINGS: There are 5 lumbar-type vertebral bodies. Pedicles are intact. Disc heights are preserved. Vertebral body heights are preserved. Alignment is normal. No spondylolytic defects are evident. IMPRESSION: 1. Normal 5 view lumbar spine
== END | disposition home or self-care (01) ==
LOC: RADXRYALE 09:11
PROVIDERS: ATTEND Internal Medicine
DX: G54.4 Lumbosacral root disorders, not elsewhere classified (principal)
CPT/HCPCS: 72110